=== PATIENT | female | born 1955 | race Caucasian/White ===

== ENCOUNTER 2021-06-03 07:49 | Emergency (ER) | payer MEDICARE, BC ==
[2021-06-03 08:39] LABS: HEMOGLOBIN 14.7 gm/dl (12.3-15.3); RED BLOOD COUNT 4.99 M/UL (4.00-5.10)
[2021-06-03 09:03] LABS: BUN/CREATININE RATIO 31 (0-10)
== END 2021-06-03 11:13 | disposition home or self-care (01) ==
LOC: ER1 07:49
PROVIDERS: Emergency Medicine
DX: I10 Essential (primary) hypertension (principal); E78.00 Pure hypercholesterolemia, unspecified; J45.909 Unspecified asthma, uncomplicated
CPT/HCPCS: 70450; 71045; 80048; 84439; 84443; 84484; 85025; 93005; 99284